=== PATIENT | female | born 1955 | race Caucasian/White ===

== ENCOUNTER 2019-07-13 08:06 | Observation (INO) | payer OTHER ==
[2019-07-12 16:16] VITALS: Ht 162.6 cm; Wt 68.0 kg
[2019-07-13] VITALS (20 sets, daily range): BP systolic 108–169; BP diastolic 58–89; PULSE 62–112; RESP 15–37
[~2019-07-13] VITALS: Ht 162.6 cm; Wt 68.0 kg
[~2019-07-13 08:06] MED LIST: AMLO-147 PO; CEFAZOLIN 2 GM/50 ML (PMX) 50 ML IVPB ONE; HYDR-3601 PO; METF500T24 PO; SOD CHLORIDE 0.9% 1,000 ML IV SCH
[2019-07-13] MEDS ORDERED: EPINEPHrine 1 MG INJ ONE (10:05)
[2019-07-13] MEDS ORDERED: BUPIVACAINE 0.25%/EPI (SDV) 10 ML INJ ONE (10:05)
[2019-07-13] MEDS ORDERED: FENTAnyl 50 MCG/ML VIAL ONE ×2 (10:44→11:40)
[2019-07-13] MEDS ORDERED: MIDAZOLAM 1 MG/ML 2 ML INJ ONE (10:44)
[2019-07-13] MEDS ORDERED: LIDOCAINE 1% (MPF) 30 ML INJ ONE (11:02)
[2019-07-13] MEDS ORDERED: ROCURONIUM 50 MG INJ ONE (11:19)
[2019-07-13] MEDS ORDERED: LIDOCAINE 2% (SDV) 5 ML INJ ONE (11:19)
[2019-07-13] MEDS ORDERED: NEOSTIGMINE 3 MG/3 ML SYRINGE ONE (11:19)
[2019-07-13] MEDS ORDERED: PROPOFOL 20 ML ONE (11:19)
[2019-07-13] MEDS ORDERED: GLYCOPYRROLATE 0.4 MG INJ ONE (11:19)
[2019-07-13] MEDS ORDERED: CEFAZOLIN 1 GM INJ ONE (11:19)
[2019-07-13] MEDS ORDERED: GENTAMICIN 80 MG INJ ONE (11:31)
[2019-07-13] MEDS: GENTAMICIN 0.1% 15 GM OINT TOP SCH ×2 (11:50→12:00)
[2019-07-13] MEDS ORDERED: ONDANSETRON 4 MG INJ ONE (12:44)
[2019-07-13] MEDS ORDERED: SUGAMMADEX SODIUM 200 MG/2 ML VIAL IV ONE (12:53)
[2019-07-13] MEDS ORDERED: morphine 2 MG INJ IV PRN (13:30)
[2019-07-13] MEDS ORDERED: LABETALOL HCL 20MG INJ IV PRN (13:30)
[2019-07-13] MEDS ORDERED: FENTAnyl 50 MCG/ML VIAL IV PRN (13:30)
[2019-07-13] MEDS ORDERED: HYDROmorphONE 1 MG/5 ML IV SYRINGE IV PRN ×2 (13:30)
[2019-07-13] MEDS ORDERED: METOCLOPRAMIDE 10 MG INJ IV PRN (13:30)
[2019-07-13] MEDS ORDERED: hydrALAzine 20 MG INJ IV PRN (13:30)
[2019-07-13] MEDS ORDERED: MEPERIDINE 25 MG INJ IV PRN (13:30)
[2019-07-13] MEDS ORDERED: HYDROCODONE/APAP (5/325) TAB PO PRN (13:30)
[2019-07-13] MEDS ORDERED: ONDANSETRON 4 MG INJ IV PRN ×2 (13:30)
[2019-07-13] MEDS ORDERED: DIPHENHYDRAMINE 50 MG INJ IV PRN (13:30)
[2019-07-13] MEDS: LACTATED RINGER'S 1,000 ML IV SCH ×2 (13:35→16:59)
[2019-07-13] MEDS: CEFAZOLIN 1 GM/50 ML (PMX) 50 ML IVPB SCH (18:22)
[2019-07-13] MEDS ORDERED: MINERAL OIL 30ML CUP PO ONE (21:00)
[2019-07-14] MEDS: CEFAZOLIN 1 GM/50 ML (PMX) 50 ML IVPB SCH ×4 (00:30→18:57)
[2019-07-14 03:00] VITALS: BP 133/67; PULSE 77; RESP 16
[2019-07-14 08:00] VITALS: BP 122/58; PULSE 75; RESP 18
[2019-07-14 14:00] VITALS: BP 132/69; PULSE 65; RESP 16
[2019-07-14] MEDS: HYDROCODONE/APAP (5/325) TAB PO PRN (16:29)
[2019-07-14 20:11] VITALS: BP 125/62; PULSE 64; RESP 18
[2019-07-14] MEDS: MINERAL OIL 30ML CUP PO SCH (21:30)
[2019-07-15] MEDS: CEFAZOLIN 1 GM/50 ML (PMX) 50 ML IVPB SCH ×3 (00:08→12:11)
[2019-07-15 02:35] VITALS: BP 140/72; PULSE 68; RESP 18
[2019-07-15] MEDS: MINERAL OIL 30ML CUP PO SCH ×2 (05:39→13:23)
[2019-07-15 08:22] VITALS: BP 130/66; PULSE 84; RESP 20
[2019-07-15] MEDS: LACTATED RINGER'S 1,000 ML IV SCH (13:10)
[2019-07-15] MEDS: HYDROCODONE/APAP (5/325) TAB PO PRN (13:23)
== END 2019-07-15 14:56 | disposition home or self-care (01) ==
LOC: SDS 08:06 → PP2 13:17
DX: K64.2 Third degree hemorrhoids (principal); R33.9 Retention of urine, unspecified; E11.9 Type 2 diabetes mellitus without complications; I10 Essential (primary) hypertension
CPT/HCPCS: 82962; 85025; 88304; 99217; G0378; J0171; J0690; J1200; J1580; J2175; J2250; J2270; J2405; J2710; J2765; J3010; J7120

== ENCOUNTER 2019-07-20 11:33 | Inpatient (IN) | payer OTHER ==
[~2019-07-20] VITALS: Ht 160 cm; Wt 65.0 kg
[~2019-07-20 11:33] MED LIST changes: -CEFAZOLIN 2 GM/50 ML (PMX) 50 ML IVPB ONE; -SOD CHLORIDE 0.9% 1,000 ML IV SCH
[2019-07-20] MEDS ORDERED: RIVAROXABAN 15 MG TABLET PO ONE (12:00)
[2019-07-20] MEDS ORDERED: RIVAROXABAN 20 MG TABLET PO ONE (12:00)
[2019-07-20] MEDS ORDERED: ONDANSETRON 4 MG INJ IV PRN ×2 (12:30→13:30)
[2019-07-20] MEDS ORDERED: ACETAMINOPHEN 325 MG TAB PO PRN (12:30)
[2019-07-20 12:35] VITALS: BP 165/77; PULSE 61; RESP 18
[2019-07-20 14:00] VITALS: BP 153/73; PULSE 72; RESP 18
[2019-07-20 15:45] VITALS: Ht 160 cm; Wt 65.0 kg
[2019-07-20] MEDS ORDERED: DEXTROSE 50% 50 ML SYRINGE IV PRN ×2 (16:30)
[2019-07-20] MEDS ORDERED: GLUCOSE GEL 15 GRAM TUBE PO PRN ×2 (16:30)
[2019-07-20] MEDS ORDERED: GLUCAGON 1 MG INJ IM PRN (16:30)
[2019-07-20] MEDS ORDERED: GLUCOSE GEL 15 GRAM TUBE BUCCAL PRN (16:30)
[2019-07-20] MEDS: INSULIN ASPART [NOVOLOG] 3 ML PEN SC SCH ×2 (17:29→21:00)
[2019-07-20] MEDS ORDERED: IBUPROFEN 600 MG TAB GTB PRN (17:30)
[2019-07-20] MEDS ORDERED: RIVAROXABAN 15 MG TABLET PO SCH (18:05)
[2019-07-20 20:00] VITALS: BP 147/79; PULSE 62; RESP 18
[2019-07-20] MEDS: metFORMIN 500 MG TAB PO SCH (21:02)
[2019-07-20] MEDS: MINERAL OIL 30ML CUP PO SCH (21:02)
[2019-07-21 02:00] VITALS: BP 135/81; PULSE 66; RESP 19
[2019-07-21 08:00] VITALS: BP 138/76; PULSE 96; RESP 18
[2019-07-21] MEDS: INSULIN ASPART [NOVOLOG] 3 ML PEN SC SCH ×4 (08:00→20:27)
[2019-07-21] MEDS: MINERAL OIL 30ML CUP PO SCH ×2 (08:38→20:37)
[2019-07-21] MEDS: AMLODIPINE 10 MG TAB PO SCH (08:38)
[2019-07-21] MEDS ORDERED: HYDROCODONE/APAP (5/325) TAB PO PRN (12:00)
[2019-07-21 14:00] VITALS: BP 136/81; PULSE 84; RESP 20
[2019-07-21] MEDS: metFORMIN 500 MG TAB PO SCH (20:36)
[2019-07-21] MEDS: DOCUSATE SODIUM 100 MG CAP PO SCH (20:37)
[2019-07-21 20:39] VITALS: BP 137/80; PULSE 67; RESP 16
[2019-07-21] MEDS: ACETAMINOPHEN 325 MG TAB PO PRN (23:44)
[2019-07-22 02:09] VITALS: BP 124/71; PULSE 68; RESP 18
[2019-07-22] MEDS: INSULIN ASPART [NOVOLOG] 3 ML PEN SC SCH ×4 (08:00→20:22)
[2019-07-22 08:02] VITALS: BP 138/79; PULSE 61; RESP 18
[2019-07-22] MEDS: MINERAL OIL 30ML CUP PO SCH ×2 (08:36→20:20)
[2019-07-22] MEDS: DOCUSATE SODIUM 100 MG CAP PO SCH ×2 (08:36→20:20)
[2019-07-22] MEDS: AMLODIPINE 10 MG TAB PO SCH (08:36)
[2019-07-22] MEDS: ACETAMINOPHEN 325 MG TAB PO PRN (11:40)
[2019-07-22 14:00] VITALS: BP 137/82; PULSE 74; RESP 19
[2019-07-22 20:00] VITALS: BP 160/88; PULSE 75; RESP 18
[2019-07-22] MEDS: metFORMIN 500 MG TAB PO SCH (20:20)
[2019-07-23 02:00] VITALS: BP 127/74; PULSE 71; RESP 18
[2019-07-23] MEDS: INSULIN ASPART [NOVOLOG] 3 ML PEN SC SCH ×2 (08:00→12:00)
[2019-07-23 08:18] VITALS: BP 137/78; PULSE 68; RESP 18
[2019-07-23] MEDS: DOCUSATE SODIUM 100 MG CAP PO SCH (09:30)
[2019-07-23] MEDS: AMLODIPINE 10 MG TAB PO SCH (09:30)
[2019-07-23] MEDS: MINERAL OIL 30ML CUP PO SCH (09:30)
[2019-07-23] MEDS: ACETAMINOPHEN 325 MG TAB PO PRN (12:12)
[2019-07-23 14:00] VITALS: BP 138/83; PULSE 94; RESP 18
== END 2019-07-23 16:40 | disposition home or self-care (01) | DRG 301 ==
LOC: E/R 11:33 → PP2 12:05
PROVIDERS: ADMIT Internal Medicine; ATTEND Internal Medicine
DX: I82.4Z2 Acute embolism and thrombosis of unspecified deep veins of left distal lower extremity (principal); I10 Essential (primary) hypertension; E11.9 Type 2 diabetes mellitus without complications; E78.5 Hyperlipidemia, unspecified; Z98.890 Other specified postprocedural states
CPT/HCPCS: 36415; 80048; 82962; 85025; 85610; 85730; 87081; 93971; J1815